=== PATIENT | female | born 1940 | race Caucasian/White ===

== ENCOUNTER 2019-12-07 09:50 | Emergency (ER) | payer MEDICARE ==
[2019-12-07] MEDS ORDERED: Naproxen 500 MG Tab PO ONE (10:45)
--- NOTE | 2019-12-07 12:01 | EDM.PDOC ---
ED HPI GENERAL MEDICAL PROBLEM - General Chief Complaint: Back Pain or Injury Stated Complaint: BACK PAIN Time Seen by Provider: 12/07/19 10:37 Source of Information: Reports: Patient, RN Notes Reviewed - History of Present Illness INITIAL COMMENTS - FREE TEXT/NARRATIVE: 79 yr old female comes in with low back pain. She injured her back 2 to 3 months ago, it got better and than reinjured her back 3 weeks ago out fishing. She states the water was rough, they got bounced around a lot and since than she has been having more pain lower mid back without radiation. No other fall or injury. Her daughter tells me she has 3 dogs, keeps lifting them unto her lap, that is likely not helping her. Not much pain at rest, increased pain with motion like getting up out of bed or getting out of a chair. Lower Back Pain Score (Numeric/FACES): 7 - Related Data Allergies Allergy/AdvReac Type Severity Reaction Status Date / Time adhesive tape Allergy Rash Verified 12/07/19 10:01 meloxicam Allergy Rash Verified 12/07/19 10:01 ct dye. Allergy Itching Uncoded 12/07/19 10:01 Home Meds: Home Meds Cinnamon Bark [Cinnamon] 500 mg PO DAILY 12/07/19 [History] Cranberry Conc/Ascorbic Acid [Cranberry 6,000 mg Softgel] 1 each PO DAILY 12/07/19 [History] Cyclobenzaprine [Flexeril] 5 mg PO BEDTIME #7 tab 12/07/19 [Rx] Furosemide 20 mg PO DAILY 12/07/19 [History] Krill/[place]-3/Dha/Epa/Lipids [Krill Oil 350 mg Softgel] 1 each PO DAILY 12/07/19 [History] Levothyroxine Sodium [Euthyrox] 50 mcg PO DAILY 12/07/19 [History] Multivit-Min/Iron/Folic/Lutein [Centrum Silver Women Tablet] 1 tab PO DAILY 12/07/19 [History] Naproxen [Naprosyn] 250 mg PO BID #14 tab 12/07/19 [Rx] Potassium Gluconate [Potassium] 600 mg PO DAILY 12/07/19 [History] amLODIPine Besylate [Amlodipine Besylate] 10 mg PO DAILY 12/07/19 [History] atenoloL [Tenormin] 50 mg PO BID 12/07/19 [History] atorvaSTATin [Lipitor] 40 mg PO BEDTIME 12/07/19 [History] glipiZIDE [Glucotrol] 5 mg PO BID 12/07/19 [History] lisinopriL [Lisinopril] 20 mg PO DAILY 12/07/19 [History] Past Medical History HEENT History: Reports: Cataract, Hard of Hearing Cardiovascular History: Reports: High Cholesterol, Hypertension - Past Surgical History HEENT Surgical History: Reports: Cataract Surgery GI Surgical History: Reports: Cholecystectomy Female Surgical History: Reports: Hysterectomy Musculoskeletal Surgical History: Reports: Knee Replacement Social & Family History - Tobacco Use Smoking Status *Q: Never Smoker - Caffeine Use Caffeine Use: Reports: Coffee - Recreational Drug Use Recreational Drug Use: No ED ROS GENERAL - Review of Systems Review Of Systems: See Below Constitutional: Denies: Fever, Chills, Diaphoresis HEENT: Reports: No Symptoms Respiratory: Reports: No Symptoms Cardiovascular: Reports: No Symptoms GI/Abdominal: Denies: Abdominal Pain, Nausea, Vomiting Musculoskeletal: Reports: Back Pain Neurological: Denies: Numbness, Tingling, Weakness ED EXAM,LOWER BACK PAIN/INJURY - Physical Exam Exam: See Below General Appearance: Alert, No Apparent Distress Head: Atraumatic Neck: Supple Respiratory/Chest: No Respiratory Distress, Lungs Clear, Normal Breath Sounds Cardiovascular: Regular Rate, Rhythm GI/Abdominal: Soft, Non-Tender Back Exam: Paraspinal Tenderness (lower thoracic and upper mid lumbar back, no visible swelling, no warmth or erythema) Extremities: Normal Inspection, Normal Range of Motion Course - Vital Signs Last Recorded V/S: Last Vital Signs Temp 97.4 F 12/07/19 10:01 Pulse 77 12/07/19 10:01 Resp 16 12/07/19 10:01 BP 158/65 H 12/07/19 10:01 Pulse Ox 98 12/07/19 10:01 - Orders/Labs/Meds Orders: Active Orders 24 hr Category Date Time Status Lumbar Spine 2 or 3V [CR] Stat Exams 12/07/19 10:45 Taken Meds: Medications Discontinued Medications Generic Name Dose Route Start Last Admin Trade Name Freq PRN Reason Stop Dose Admin Naproxen 500 mg 12/07/19 10:45 12/07/19 10:53 Naprosyn PO 12/07/19 10:46 500 mg ONETIME ONE Administration - Re-Assessments/Exams Free Text/Narrative Re-Assessment/Exam: 12/07/19 12:31 X rays of back look like she has a compression fx of T12, age unknown, discharge instr. as documented. Departure - Departure Time of Disposition: 12:21 Disposition: Home, Self-Care 01 Condition: Fair Clinical Impression: Compression fracture - Discharge Information Prescriptions: Cyclobenzaprine [Flexeril] 5 mg PO BEDTIME #7 tab Naproxen [Naprosyn] 250 mg PO BID #14 tab Instructions: Spinal Compression Fracture Referrals: Melissa Walker MD [Primary Care Provider] - Forms: ED Department Discharge Additional Instructions: You have a compression fracture of T12, age unknown. That is likely causing or at least contributing to your current back discomfort. For now that means no lifting, not even your dogs until after pain has resolved. Naprosyn 250 twice daily for 1 week. Flexeril muscle relaxer once daily at bedtime. Prescriptions have been sent electronically to [facility] located at the [facility]. They are open all day today until this evening. Alternate ice and heat to low back as needed. Physical therapy if pain not resolving over the next [address] Walker in about 5 to 10 days for recheck, call for appt. Sepsis Event Note (ED) - Evaluation Sepsis Screening Result: No Definite Risk - Focused Exam Vital Signs: Vital Signs Temp Pulse Resp BP Pulse Ox 12/07/19 10:01 97.4 F 77 16 158/65 H 98 - My Orders Last 24 Hours: My Active Orders 12/07/19 10:45 Lumbar Spine 2 or 3V [CR] Stat - Assessment/Plan Last 24 Hours: My Active Orders 12/07/19 10:45 Lumbar Spine 2 or 3V [CR] Stat
--- NOTE | 2019-12-09 11:16 | CR ---
Lumbar spine: AP and lateral views of the lumbar spine were obtained. Comparison: No prior lumbar spine imaging is available. Severe compression deformity of T12 is noted. Mild compression deformity of L1 is noted. Other vertebral body heights are maintained. Minimal posterior disc space narrowing is noted at L5-S1. Mild scattered endplate osteophytes are seen with mild scoliosis. Visualized transverse and spinous processes are intact. Sacroiliac joints appear within normal limits. Surgical clips are seen from previous cholecystectomy. Diffuse atherosclerotic calcification is noted within a nondilated abdominal aorta. Impression: 1. Severe compression deformity of T12 with mild compression deformity of L1. Uncertain if these are acute or old. MRI with fat suppressed technique would be needed to further age these findings if clinically indicated. 2. Slight degenerative change and vascular calcification. Diagnostic code #3 This report was dictated in MDT I agree with preliminary report from Reginald, finalized on 12/07/19, 1:31 PM Central Daylight Time
== END 2019-12-07 12:51 | disposition home or self-care (01) ==
LOC: JD.ED 09:50
DX: S22.089A Unspecified fracture of T11-T12 vertebra, initial encounter for closed fracture (principal); S32.019A Unspecified fracture of first lumbar vertebra, initial encounter for closed fracture; I10 Essential (primary) hypertension; Z79.899 Other long term (current) drug therapy; Z91.048 Other nonmedicinal substance allergy status; Z88.8 Allergy status to other drugs, medicaments and biological substances; Z91.041 Radiographic dye allergy status; X58.XXXA Exposure to other specified factors, initial encounter
CPT/HCPCS: 72100; 99283; A9270